=== PATIENT | male | born 1980 | race Native Hawaiian/Other Pacific Islander ===

== ENCOUNTER 2017-03-11 10:11 | Emergency (ER) | payer SELFPAY ==
[2017-03-11 10:25] VITALS: BP 147/95; PULSE 83; RESP 20; TEMP 97.5; O2SAT 100
--- NOTE | 2017-03-15 11:33 | CARD ---
APPROVED REPORT EKG Measurement Heart [id number] <Conclusion> Normal sinus rhythm Normal ECG
== END 2017-03-11 10:55 | disposition left against medical advice (07) ==
LOC: C.ER 10:11
DX: R53.1 Weakness (principal); Z02.9 Encounter for administrative examinations, unspecified
CPT/HCPCS: 93005; LWBS0